=== PATIENT | female | born 1975 | race Caucasian/White ===

== ENCOUNTER → 2017-04-05 | Outpatient (CLI) | payer MEDICAID ==
[2016-12-09 07:42] VITALS: BP 140/88
[2017-04-05 11:32] LABS: BASOPHILS % (AUTO) 0.6 % (0.2-1.0); EOSINOPHILS # (AUTO) 0.2 x10^3/uL (0.0-0.2); EOSINOPHILS % (AUTO) 3.7 % (0.9-2.9); HEMATOCRIT 35.5 % (36.0-47.0); HEMOGLOBIN 12.3 g/dL (12.0-16.0); LYMPHOCYTES # (AUTO) 1.9 X10^3/uL (1.3-2.9); LYMPHOCYTES % (AUTO) 34.6 % (21.0-51.0); MEAN CORPUSCULAR HEMOGLOBIN 30.7 pg (27.0-34.0); MEAN CORPUSCULAR HGB CONC 34.5 g/dL (33.0-35.0); MEAN CORPUSCULAR VOLUME 88.7 fL (80.0-100.0); MEAN PLATELET VOLUME 10.3 fL (7.4-11.0); MONOCYTES # (AUTO) 0.4 x10^3/uL (0.3-0.8); MONOCYTES % (AUTO) 6.9 % (0.0-13.0); NEUTROPHILS # (AUTO) 2.9 x10^3/uL (2.2-4.8); NEUTROPHILS % (AUTO) 54.2 % (42.0-75.0); PLATELET COUNT 154 X10^3/uL (150.0-450.0); RED CELL DISTRIBUTION WIDTH 13.3 % (11.6-16.5); WHITE BLOOD COUNT 5.4 X10^3/uL (3.6-10.0)
[2017-04-05 11:41] LABS: HEMOGLOBIN A1C 5.4 % (4.5-6.2)
[2017-04-05 11:45] LABS: ALBUMIN 3.1 g/dL (3.4-5.0); BLOOD UREA NITROGEN 13 mg/dL (7-18); CALCIUM 8.7 mg/dL (8.5-10.1); CARBON DIOXIDE 26.1 mmol/L (21-32); CHLORIDE 107 mmol/L (98-107); CHOL/HDL RATIO 3.5 (0.0-5.0); CHOLESTEROL 121 mg/dL (0-200); COR CA(FOR HYPOALB) 9.4 mg/dL (8.5-10.1); CREATININE 0.73 mg/dL (0.55-1.02); GLUCOSE 93 mg/dL (65-99); HDL CHOLESTEROL 35 mg/dL (40-60); PHOSPHORUS 3.3 mg/dL (2.6-4.7); SODIUM 142 mmol/L (136-145); TRIGLYCERIDES 188 mg/dL (0-150); URIC ACID 4.3 mg/dL (2.6-6.0); eGFR BLACK RACES > 60 (>60); eGFR NON BLACK RACES > 60 (>60)
--- NOTE | 2017-04-05 12:22 | RAD ---
HISTORY: Left foot pain, nontraumatic Study: Left foot three views Comparison: None Findings: Postsurgical changes are present in the distal 1st metatarsal with 2 screws present. The patient is likely status post bunionectomy. No acute bone or acute joint abnormality is identified. No fracture , lytic, or blastic lesion is identified. No erosive arthritis or soft tissue abnormality is identif ied. IMPRESSION: No acute findings Postsurgical changes as above Reported By:
== END ==
LOC: LAB 11:05
PROVIDERS: ATTEND Internal Medicine
DX: I10 Essential (primary) hypertension (principal); N39.9 Disorder of urinary system, unspecified; M79.672 Pain in left foot
CPT/HCPCS: 36415; 73630; 80061; 80069; 83036; 84550; 85025; 87086

== ENCOUNTER → 2017-05-24 | Outpatient (CLI) | payer MEDICAID ==
[2016-12-09 07:42] VITALS: BP 140/88
[2017-05-24 11:38] LABS: BASOPHILS % (AUTO) 0.6 % (0.2-1.0); EOSINOPHILS # (AUTO) 0.2 x10^3/uL (0.0-0.2); EOSINOPHILS % (AUTO) 2.9 % (0.9-2.9); HEMATOCRIT 36.6 % (36.0-47.0); HEMOGLOBIN 12.9 g/dL (12.0-16.0); LYMPHOCYTES # (AUTO) 1.9 X10^3/uL (1.3-2.9); LYMPHOCYTES % (AUTO) 35.1 % (21.0-51.0); MEAN CORPUSCULAR HEMOGLOBIN 31.1 pg (27.0-34.0); MEAN CORPUSCULAR HGB CONC 35.1 g/dL (33.0-35.0); MEAN CORPUSCULAR VOLUME 88.5 fL (80.0-100.0); MEAN PLATELET VOLUME 9.9 fL (7.4-11.0); MONOCYTES # (AUTO) 0.4 x10^3/uL (0.3-0.8); MONOCYTES % (AUTO) 8.1 % (0.0-13.0); NEUTROPHILS % (AUTO) 53.3 % (42.0-75.0); PLATELET COUNT 168 X10^3/uL (150.0-450.0); RED BLOOD COUNT 4.14 X10^6/uL (3.5-5.4); RED CELL DISTRIBUTION WIDTH 13.8 % (11.6-16.5); WHITE BLOOD COUNT 5.5 X10^3/uL (3.6-10.0)
[2017-05-24 13:07] LABS: ALBUMIN 3.4 g/dL (3.4-5.0); BLOOD UREA NITROGEN 18 mg/dL (7-18); CALCIUM 8.9 mg/dL (8.5-10.1); CARBON DIOXIDE 24.4 mmol/L (21-32); CHLORIDE 105 mmol/L (98-107); CHOL/HDL RATIO 4.8 (0.0-5.0); CHOLESTEROL 158 mg/dL (0-200); COR NA(FOR HYPERGLY) 140 mmol/L (136-145); CREATININE 0.72 mg/dL (0.55-1.02); GLUCOSE 114 mg/dL (65-99); HDL CHOLESTEROL 33 mg/dL (40-60); PHOSPHORUS 3.4 mg/dL (2.6-4.7); SODIUM 140 mmol/L (136-145); TRIGLYCERIDES 215 mg/dL (0-150); URIC ACID 4.7 mg/dL (2.6-6.0); eGFR BLACK RACES > 60 (>60); eGFR NON BLACK RACES > 60 (>60)
== END ==
LOC: LAB 10:58
PROVIDERS: ATTEND Internal Medicine
DX: I12.9 Hypertensive chronic kidney disease with stage 1 through stage 4 chronic kidney disease, or unspecified chronic kidney disease (principal)
CPT/HCPCS: 36415; 80061; 80069; 84550; 85025

== ENCOUNTER → 2017-05-29 | Outpatient (CLI) | payer MEDICAID ==
[2016-12-09 07:42] VITALS: BP 140/88
--- NOTE | 2017-05-29 09:51 | RAD ---
Examination: X-rays of the left foot. Clinical history: Calcaneal spur, plantar fascial fibromatosis. Technique: Three views of the left foot were obtained. Comparison: 04/05/2017. Findings: The 2 metallic screws are seen associated with the distal portion of the 1st metatarsal bone, unchan ged from the prior examination, probably related to a prior bunionectomy. No acute fracture, dislocation, or destructive bony lesion is noted. Small bony spurs are noted at the plantar and posterior aspects of the calcaneus, consistent with en thesopathy. No soft tissue abnormality is noted. Impression: 1. Stable postsurgical changes, as described above. 2. Small bony spurs are noted at the plantar and posterior aspects of the calcaneus, consistent with enthesopathy. Reported By:
--- NOTE | 2017-05-29 09:53 | RAD ---
Examination: X-rays of the right foot. Clinical history: Calcaneal spur, plantar fascial fibromatosis. Technique: Three views of the right foot were obtained. Comparison: None available. Findings: No acute fracture, dislocation, or destructive bony lesion is noted. Moderate-sized bony spurs are noted at the plantar and posterior aspects of the calcaneus, consisten t with enthesopathy. No soft tissue abnormality is noted. Impression: 1. No acute fracture or dislocation. 2. Moderate-sized bony spurs are noted at the plantar and posterior aspects of the calcaneus, consis tent with enthesopathy. Reported By:
--- NOTE | 2017-05-29 13:19 | US ---
STUDY: RENAL ULTRASOUND History: Recurring UTI. Comparison: None. Technique: Multiple matta scale and color flow Doppler images of the kidneys were obtained. The jessica on of the urinary bladder was evaluated. Findings: The right kidney is normal in size and echotexture measuring 8.7 x 5.2 x 6.7 cm. Right renal cortex measures 1.5 cm. There is no evidence of mass, nephrolithiasis, or hydronephrosis. The left kidney is normal in size and echotexture measuring 10.6 x 6.0 x 7.1 cm. Left renal cortex m easures 1.7 cm. There is no evidence of mass, nephrolithiasis, or hydronephrosis. Color flow imaging shows normal arterial and venous blood flow to and from both kidneys. The urinary bladder is grossly unremarkable. IMPRESSION: 1. Unremarkable ultrasound evaluation of the kidneys. Reported By:
== END ==
LOC: RAD 08:42
PROVIDERS: ATTEND Urology
DX: N30.20 Other chronic cystitis without hematuria (principal); M77.31 Calcaneal spur, right foot; M77.32 Calcaneal spur, left foot; M72.2 Plantar fascial fibromatosis
CPT/HCPCS: 73630; 76770

== ENCOUNTER 2017-06-20 21:21 | Emergency (ER) | payer MEDICAID ==
[2017-06-20 21:26] VITALS: BP 145/100; BMI 37.4
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
[2017-06-20 22:04] LABS: BASOPHILS % (AUTO) 0.3 % (0.2-1.0); EOSINOPHILS # (AUTO) 0.2 x10^3/uL (0.0-0.2); EOSINOPHILS % (AUTO) 2.6 % (0.9-2.9); HEMATOCRIT 35.2 % (36.0-47.0); HEMOGLOBIN 12.5 g/dL (12.0-16.0); LYMPHOCYTES # (AUTO) 2.1 X10^3/uL (1.3-2.9); LYMPHOCYTES % (AUTO) 30.9 % (21.0-51.0); MEAN CORPUSCULAR HEMOGLOBIN 31.5 pg (27.0-34.0); MEAN CORPUSCULAR HGB CONC 35.5 g/dL (33.0-35.0); MEAN CORPUSCULAR VOLUME 88.7 fL (80.0-100.0); MONOCYTES # (AUTO) 0.5 x10^3/uL (0.3-0.8); MONOCYTES % (AUTO) 7.2 % (0.0-13.0); NEUTROPHILS # (AUTO) 4.1 x10^3/uL (2.2-4.8); PLATELET COUNT 181 X10^3/uL (150.0-450.0); RED BLOOD COUNT 3.97 X10^6/uL (3.5-5.4); RED CELL DISTRIBUTION WIDTH 14.2 % (11.6-16.5); WHITE BLOOD COUNT 6.9 X10^3/uL (3.6-10.0)
[2017-06-20 22:17] LABS: BLOOD UREA NITROGEN 10 mg/dL (7-18); CALCIUM 8.8 mg/dL (8.5-10.1); CARBON DIOXIDE 26.3 mmol/L (21-32); CHLORIDE 107 mmol/L (98-107); CREATININE 0.66 mg/dL (0.55-1.02); GLUCOSE 103 mg/dL (65-99); SODIUM 141 mmol/L (136-145); eGFR BLACK RACES > 60 (>60); eGFR NON BLACK RACES > 60 (>60)
== END 2017-06-20 23:30 | disposition home or self-care (01) ==
LOC: ER 21:29
DX: Z00.6 Encounter for examination for normal comparison and control in clinical research program (principal)
CPT/HCPCS: 36415; 80048; 85025; 99282; 99283

== ENCOUNTER → 2017-10-28 | Outpatient (CLI) | payer MEDICAID ==
--- NOTE | 2017-10-28 14:41 | RAD ---
Examination: Chest, PA and lateral views History: Cough, SOB Comparison reference 06/05/2016 Findings: Continued normal heart size with clear lungs and pleural spaces. Impression: No change; no acute disease. Reported By:
== END ==
LOC: RAD 13:49
PROVIDERS: ATTEND Internal Medicine
DX: R05 Cough (principal); R06.02 Shortness of breath; Z86.79 Personal history of other diseases of the circulatory system
CPT/HCPCS: 71046

== ENCOUNTER 2017-10-30 11:48 | Observation (INO) | payer MEDICAID ==
[2017-10-30] MEDS ORDERED: PHENERGAN INJ 25 MG IV PRN ×2 (13:33→15:29)
[2017-10-30] MEDS ORDERED: PEPCID 20 MG IV PREMIX* 20 MG/50 ML BAG IV SCH (14:00)
[2017-10-30] MEDS ORDERED: NS 1/2 1000 ML IV 1,000 ML IV ONE (15:56)
[2017-10-30 15:57] LABS: BASOPHILS % (AUTO) 0.5 % (0.2-1.0); EOSINOPHILS # (AUTO) 0.3 x10^3/uL (0.0-0.2); EOSINOPHILS % (AUTO) 3.8 % (0.9-2.9); HEMATOCRIT 38.3 % (36.0-47.0); HEMOGLOBIN 13.1 g/dL (12.0-16.0); LYMPHOCYTES # (AUTO) 2.1 X10^3/uL (1.3-2.9); LYMPHOCYTES % (AUTO) 30.7 % (21.0-51.0); MEAN CORPUSCULAR HEMOGLOBIN 30.9 pg (27.0-34.0); MEAN CORPUSCULAR HGB CONC 34.3 g/dL (33.0-35.0); MEAN CORPUSCULAR VOLUME 90.2 fL (80.0-100.0); MEAN PLATELET VOLUME 9.7 fL (7.4-11.0); MONOCYTES # (AUTO) 0.4 x10^3/uL (0.3-0.8); MONOCYTES % (AUTO) 6.6 % (0.0-13.0); NEUTROPHILS # (AUTO) 3.9 x10^3/uL (2.2-4.8); NEUTROPHILS % (AUTO) 58.4 % (42.0-75.0); PLATELET COUNT 194 X10^3/uL (150.0-450.0); RED BLOOD COUNT 4.25 X10^6/uL (3.5-5.4); RED CELL DISTRIBUTION WIDTH 13.9 % (11.6-16.5); WHITE BLOOD COUNT 6.7 X10^3/uL (3.6-10.0)
[2017-10-30] MEDS: NS 1/2 1000 ML IV 1,000 ML IV SCH (16:04)
[2017-10-30] MEDS: ROCEPHIN VIAL 1 GM 1 GM in NS 100 ML IV + SPIKE MINIBAG* 100 ML IV SCH (16:04)
--- NOTE | 2017-10-30 16:08 | RAD ---
Examination: Abdomen with PA chest History: Pain, fever Findings: PA upright chest demonstrates normal heart size with clear lungs and pleural spaces. In the abdomen, supine and erect views indicate a normal gas pattern without evidence for obstruction or il eus. No ascites, pneumatosis or free air demonstrated. There are surgical clips in the right upper qu adrant and a single clip is noted in the left pelvis. No visceral outlines deformities identified. Impression: Postsurgical findings in the abdomen. No acute chest or abdominal process demonstrated. Reported By:
[2017-10-30 16:20] LABS: ALANINE AMINOTRANSFERASE 69 Units/L (12-78); ALBUMIN 3.6 g/dL (3.4-5.0); ALKALINE PHOSPHATASE 92 Units/L (46-116); ASPARTATE AMINO TRANSFERASE 24 Units/L (15-37); BLOOD UREA NITROGEN 13 mg/dL (7-18); CALCIUM 9.2 mg/dL (8.5-10.1); CARBON DIOXIDE 27.9 mmol/L (21-32); CHLORIDE 105 mmol/L (98-107); CREATININE 0.64 mg/dL (0.55-1.02); SODIUM 141 mmol/L (136-145); eGFR BLACK RACES > 60 (>60); eGFR NON BLACK RACES > 60 (>60)
[2017-10-30 17:42] VITALS: BMI 37.4
[2017-10-30] MEDS: PEPCID 20 MG IV PREMIX* 20 MG/50 ML BAG IV SCH (20:12)
[2017-10-30 23:17] LABS: BILIRUBIN,URINE NEGATIVE (NEGATIVE); BLOOD/HEMOGLOBIN,URINE 5+ (NEGATIVE); GLUCOSE, URINE NEGATIVE (NEGATIVE); KETONES,URINE NEGATIVE (NEGATIVE); LEUKOCYTE ESTERASE ,URINE 2+ (NEGATIVE); NITRITES,URINE NEGATIVE (NEGATIVE); PROTEIN,URINE 1+ (NEGATIVE); UROBILINOGEN,URINE NORMAL (NORMAL)
[2017-10-30 23:34] LABS: AMORPHOUS SEDIMENT,UR 1+ /HPF (NEGATIVE); APPEARANCE,URINE HAZY (CLEAR); BACTERIA,URINE TRACE /HPF (NEGATIVE); COLOR,URINE YELLOW (YELLOW); MUCUS,URINE MODERATE /HPF (NEGATIVE); SQUAMOUS EPITHELIAL CELL,UR MANY /HPF (NEGATIVE)
[2017-10-31] MEDS ORDERED: NS 1/2 1000 ML IV 1,000 ML IV ONE ×2 (03:54→17:39)
[2017-10-31] MEDS: NS 1/2 1000 ML IV 1,000 ML IV SCH ×2 (04:10→17:48)
[2017-10-31] MEDS ORDERED: NS 100 ML IV 100 ML IV ONE (09:15)
--- NOTE | 2017-10-31 10:37 | CT ---
CT ABDOMEN AND PELVIS WITH ORAL AND IV CONTRAST CLINICAL HISTORY: 42-year-old female with abdominal pain and urinary retention COMPARISON: None. TECHNIQUE: Multiple contiguous axial were obtained following the administration of contrast. Images were reformatted in the coronal and sagittal planes. FINDINGS: The lung bases are clear without pulmonary nodules, masses, or pleural fluid collections. The inferi or imaged heart is normal in size and there is no pericardial effusion. Hepatomegaly without hepatic steatosis, no focal mass lesion or biliary ductal dilatation. Status pos t cholecystectomy. Pancreas and spleen are unremarkable. The adrenal glands are normal bilaterally. 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 The kidneys perfuse in a normal fashion and the ureters run in an unobstructed course to a well distended urinary bladder . The uterus is anteverted and normal in size. Left ovary, perineum and vagina are unremarkable. Right simple appearing adnexal cyst measuring 6.6 x 6.1 x 6.1 cm (AP, transverse and craniocaudad). Additi onal simple appearing cystic structure within the right lower quadrant, retrocecal, measuring 5.5 x 5 .6 x 5.6 cm. The bowel is without obstruction or inflammation and there is no free fluid or free air within the pe ritoneal cavity. Diverticulosis without CT evidence of diverticulitis. Appendix is normal. There are no pathologically enlarged lymph nodes in the abdomen or pelvis. The arteriovascular structures are within normal limits. Soft tissues are normal. The osseous structures are intact without fracture or malalignment. IMPRESSION: 1. Simple appearing cystic lesion within the right lower quadrant measuring up to 5.6 cm is most cons istent with peritoneal inclusion cysts. Less likely differential considerations include but are not l imited to lymphocele, parovarian cyst and ovarian neoplastic process. Further evaluation with ultraso und/MR should be considered. 2. Large, simple appearing, right adnexal cysts measuring up to 6.6 cm, most likely benign. Yearly fo llow-up with ultrasound is recommended. Follow-up with [employer] [employer]. 3. Hepatomegaly. 4. Normal appendix. 5. No acute intra-abdominal or intrapelvic process. Reported By:
[2017-10-31] MEDS: ROCEPHIN VIAL 1 GM 1 GM in NS 100 ML IV + SPIKE MINIBAG* 100 ML IV SCH (10:45)
[2017-10-31] MEDS: PEPCID 20 MG IV PREMIX* 20 MG/50 ML BAG IV SCH ×2 (10:45→20:55)
[2017-10-31] MEDS ORDERED: NORCO 10/325 TAB PO PRN (19:20)
[2017-10-31] MEDS ORDERED: SOMA TAB 350 MG PO PRN (19:20)
--- NOTE | 2017-10-31 19:20 | DR.H&P ---
H&P - History & Physical for Day of: H&P Date: 10/30/17 - Chief Complaint Chief Complaint: ABDOMINAL PAIN, URINARY RETENTION, FEVER - Allergies Allergies/Adverse Reactions: Allergies Allergy/AdvReac Type Severity Reaction Status Date / Time codeine Allergy Verified 10/30/17 11:55 dexamethasone Allergy Verified 10/30/17 11:55 haloperidol Allergy Verified 10/30/17 11:55 Penicillins Allergy Verified 10/30/17 11:55 prochlorperazine Allergy Verified 10/30/17 11:55 promethazine Allergy Verified 10/30/17 11:55 - History of Present Illness History of Present Illness: 42WF DIRECT ADMIT FROM DR ADAMS OFFICE WITH CO LOWER ABDOMINAL PAIN, FEVER, RECENT UTI AND CO VERY MINIMAL URINE OUTPUT. PT ADMITTED FOR FURTHER EVALUATION OF ABDOMINAL PAIN. PLAN TO OTBAIN UA AND CULTURES, IV ATBX THERAPY - Past Medical History Past Medical History: Anxiety, Asthma, COPD, Depression, Diabetes, Migraines, Hypertension - Past Surgical History Surgical History: Cholecystectomy, [employer] Surgery, Ortho Surgery - Family History Family Medical History: Hypertension - Social History Does patient currently use any type of tobacco product: No Have you used tobacco products in the last 12 months: No Type of Tobacco Use: None Alcohol Use: None Drug Use: None - Medications Home Medications: Budesonide-Formoterol [SYMBICORT INH 80/4.5 mcg] 2 puff INH Q12H 10/30/17 [ History Confirmed 10/30/17] Carisoprodol [Soma Tab 350 mg] 350 mg PO BID PRN 10/30/17 [History Confirmed 08/07] Dicyclomine HCl [Bentyl Cap 10 mg] 10 mg PO TID 10/30/17 [History Confirmed 08/07] Diltiazem HCl [Diltiazem ER] 90 mg PO DAILY 10/30/17 [History Confirmed 10/30/17 ] Gabapentin [Neurontin Cap 300 mg] 300 mg PO TID 10/30/17 [History Confirmed 08/07] Hydrocodone-Acet 10/325 mg [[place] 10/325 Tab] 1 tab PO Q8H PRN 10/30/17 [ History Confirmed 10/30/17] Levocetirizine Dihydrochloride [Xyzal Allergy 24Hr] 5 mg PO HS 10/30/17 [ History Confirmed 10/30/17] Meloxicam [Mobic Tab 15 mg] 15 mg PO DAILY 10/30/17 [History Confirmed 10/30/17] Omeprazole [PRILOSEC 20 MG *] 20 mg PO DAILY 10/30/17 [History Confirmed ] Quetiapine Fumarate [Quetiapine Fumarate ER] 50 mg PO HS 10/30/17 [History Confirmed 10/30/17] - Review of Systems Constitutional: Fever, Chills Eyes: No Symptoms Reported ENT: No Symptoms Reported Respiratory: No Symptoms Reported Cardiovascular: No Symptoms Reported Gastrointestinal: Nausea Genitourinary: Retention Musculoskeletal: Back Pain, Neck Pain Skin: No Symptoms Reported Neurological: Weakness - Physical Exam Vital Signs: Temperature 98.4 F Pulse Rate [Right Brachial] 83 Respiratory Rate 18 Blood Pressure [Right Arm] 150/78 Blood Pressure 145/100 O2 Sat by Pulse Oximetry 97 Oriented: Normal Eyes: Normal Ear: Normal Nose: Normal Throat: Normal Respiratory: RLL Diminished, LLL Diminished Cardiovascular: Normal, Irregular Auscultation: Bowel Sounds: Normal Tenderness: LLQ, Suprapubic Skin: Normal Musculoskeletal: Back:Lumbar Psychiatric: Anxiety Affect: Anxious Speech Pattern: Clear, Appropriate - Assessment/Plan (1) Abdominal pain Status: Acute Plan: ADMISSION LABS, IV ATBX. URINE CULTURE, ABD SERIES ON ADMISSION. PAIN AND NAUSEA CONTROL, RESUME HOME MEDS (2) Urinary tract infectious disease Status: Active (3) Hypertension Status: Acute
[2017-10-31] MEDS ORDERED: PATIENT'S HOME MEDICATION (Budesonide-Formoterol 2 PUFF) INH SCH (19:30)
[2017-10-31] MEDS: PULMICORT NEB TX 0.5 MG NEB SCH (20:40)
[2017-10-31] MEDS ORDERED: ALPRAZOLAM 0.5 MG PO SCH (21:00)
[2017-10-31] MEDS ORDERED: PATIENT'S HOME MEDICATION (Quetiapine Fumarate [Quetiapine Fumarate Er] 50 MG) PO SCH (21:00)
[2017-10-31] MEDS ORDERED: PULMICORT NEB TX 0.5 MG NEB SCH (21:00)
[2017-10-31] MEDS ORDERED: SEROquel TAB 100 MG PO SCH (21:00)
[2017-10-31] MEDS ORDERED: SYMBICORT INH 80/4.5 mcg IN SCH (21:00)
[2017-10-31] MEDS ORDERED: NEURONTIN CAP 300 MG PO SCH (22:00)
[2017-10-31] MEDS: XANAX PO SCH (22:11)
[2017-11-01 06:09] LABS: BASOPHILS % (AUTO) 0.4 % (0.2-1.0); EOSINOPHILS # (AUTO) 0.2 x10^3/uL (0.0-0.2); HEMOGLOBIN 11.9 g/dL (12.0-16.0); LYMPHOCYTES # (AUTO) 1.7 X10^3/uL (1.3-2.9); LYMPHOCYTES % (AUTO) 33.6 % (21.0-51.0); MEAN CORPUSCULAR HEMOGLOBIN 31.6 pg (27.0-34.0); MEAN CORPUSCULAR HGB CONC 35.1 g/dL (33.0-35.0); MEAN CORPUSCULAR VOLUME 90.2 fL (80.0-100.0); MEAN PLATELET VOLUME 9.7 fL (7.4-11.0); MONOCYTES # (AUTO) 0.4 x10^3/uL (0.3-0.8); MONOCYTES % (AUTO) 7.3 % (0.0-13.0); NEUTROPHILS # (AUTO) 2.8 x10^3/uL (2.2-4.8); NEUTROPHILS % (AUTO) 54.7 % (42.0-75.0); PLATELET COUNT 163 X10^3/uL (150.0-450.0); RED BLOOD COUNT 3.77 X10^6/uL (3.5-5.4); RED CELL DISTRIBUTION WIDTH 13.9 % (11.6-16.5); WHITE BLOOD COUNT 5.1 X10^3/uL (3.6-10.0)
[2017-11-01] MEDS ORDERED: NEURONTIN CAP 300 MG PO SCH (06:11)
[2017-11-01] MEDS: NEURONTIN CAP 300 MG PO SCH ×2 (06:18→08:57)
[2017-11-01 06:48] LABS: ALANINE AMINOTRANSFERASE 53 Units/L (12-78); ALBUMIN 2.9 g/dL (3.4-5.0); ALKALINE PHOSPHATASE 86 Units/L (46-116); ASPARTATE AMINO TRANSFERASE 15 Units/L (15-37); BLOOD UREA NITROGEN 12 mg/dL (7-18); CALCIUM 8.8 mg/dL (8.5-10.1); CARBON DIOXIDE 23.5 mmol/L (21-32); CHLORIDE 109 mmol/L (98-107); COR CA(FOR HYPOALB) 9.7 mg/dL (8.5-10.1); COR NA(FOR HYPERGLY) 142 mmol/L (136-145); CREATININE 0.67 mg/dL (0.55-1.02); SODIUM 142 mmol/L (136-145); TOTAL PROTEIN 6.2 g/dL (6.4-8.2); eGFR BLACK RACES > 60 (>60); eGFR NON BLACK RACES > 60 (>60)
[2017-11-01] MEDS: PEPCID 20 MG IV PREMIX* 20 MG/50 ML BAG IV SCH (08:56)
[2017-11-01] MEDS: ROCEPHIN VIAL 1 GM 1 GM in NS 100 ML IV + SPIKE MINIBAG* 100 ML IV SCH (08:56)
[2017-11-01] MEDS: XANAX PO SCH (08:58)
[2017-11-01] MEDS ORDERED: CARDIZEM SR 90 MG PO SCH (09:00)
[2017-11-01] MEDS ORDERED: MOBIC TAB 15 MG PO SCH (09:00)
[2017-11-01] MEDS ORDERED: PriLOSEC PO SCH (09:00)
[2017-11-01] MEDS ORDERED: DILTIAZEM HCL 90 MG PO SCH (09:00)
[2017-11-01] MEDS ORDERED: SINGULAIR TAB 10 MG PO SCH (09:00)
[2017-11-01] MEDS: PULMICORT NEB TX 0.5 MG NEB SCH (10:12)
[2017-11-01 13:18] VITALS: BP 140/70
--- NOTE | 2017-11-01 14:12 | MRI ---
MRI abdomen without contrast, MRCP Indication: Further evaluate cystic lesion on CT. Urinary retention, abdominal pain Comparison: CT abdomen and pelvis 10/31/2017 Technique: Multiplanar multi sequence MR images of the abdomen were obtained without contrast. MRCP w as performed. Findings: The liver is diffusely steatotic and enlarged, but without focal lesion. The gallbladder is absent. The bile ducts are within normal limits for postcholecystectomy state. Small hiatal hernia o f the stomach is similar to prior. The remainder of the stomach, spleen, duodenum, pancreas, adrenals , and kidneys are unremarkable. Again seen is a simple cystic mass in the right lower quadrant measur ing 5.9 x 5.7 x 5.6 cm (AP by transverse by craniocaudal). This lesion appears to be separable from t he appendix, which appears normal. A simple 6.6 x 6.2 cm right adnexal cyst is also unchanged. The ut erus and ovaries are noted. The urinary bladder and rectum are unremarkable as visualized. Impression: 1. Stable 5.9 cm simple cystic mass within the right lower quadrant, with differential considerations as before. Appendiceal mucocele is unlikely, as the appendix is separable from the lesion on the cur rent study, while the appendix abutted the lesion on the previous CT. 2. Simple 6.6 cm right adnexal cyst. 3. Hepatic steatosis, hepatomegaly 4. Small hiatal hernia Reported By:
== END 2017-11-01 14:55 | disposition home or self-care (01) ==
LOC: OBS 11:48
PROVIDERS: ADMIT Internal Medicine; ATTEND Internal Medicine
DX: R10.84 Generalized abdominal pain (principal); N39.0 Urinary tract infection, site not specified; J44.1 Chronic obstructive pulmonary disease with (acute) exacerbation; E11.65 Type 2 diabetes mellitus with hyperglycemia; I10 Essential (primary) hypertension; R19.09 Other intra-abdominal and pelvic swelling, mass and lump; E27.8 Other specified disorders of adrenal gland; R16.0 Hepatomegaly, not elsewhere classified; I25.10 Atherosclerotic heart disease of native coronary artery without angina pectoris; I50.9 Heart failure, unspecified
CPT/HCPCS: 36415; 74022; 74177; 74181; 80053; 81001; 85025; 94640; A4222; S0028; G0378; J0696; J7626

== ENCOUNTER 2018-01-15 18:10 | Emergency (ER) | payer MEDICAID ==
[2018-01-15 18:23] VITALS: BMI 38.2
--- NOTE | 2018-01-15 18:32 | DR.GENAD ---
HPI - PCP Primary Care Physician: FERMIN CULVER, BAG SEWER - HPI Comment HPI Comment: SAW PCP AND WAS TREATED FOR EAR INFECTION AND KNEE PAIN WITH 3 INJECTION. WENT HOME AND HER HEART STARTED POUNDING. NURSE TOLD HER TO CALL EMS AND COME TO ED. - Complaint/Symptoms Chief Complaint Doctors Comments: HEART POUNDING, RAPID AND CHEST HURTING FOR Chief Complaint:: EMS OUT TO > HR, PT C/O THAT SHE WENT TO HER PRIMARY CARE AND SHE HAS FELT FUNNY AND HER HR WAS> , PT HAS HX AND PT HAS HX HIGH HR AND SHE TOOK HER BP MEDS THIS AM ,, BR Self Treatment fo Chief Complaint: PT IS POOR HISTORIAN WHEN SHE WAS ASKED HX SHE STATES " ATIF".. CAN'T REMEMBER .. BR - Nurses notes reviewed Nurses Notes Review: Yes - Source History Provided: Patient - Mode of Arrival Mode of Arrival: EMS - Timing Onset of Chief Complaint: 01/15/18 Came on: Suddenly - Duration Duration: Constant Duration: Hours - Severity Severity: Moderate PMH - PMH Past Medical History: Yes Past Medical History: Anxiety, Asthma, COPD, Depression, Diabetes, Migraines, Hypertension Past Medical History Comment: > HR, Past Surgical History: Yes Surgical History: Cholecystectomy, CHEMISTRY QUALITY CONTROL ANALYST Surgery, Ortho Surgery - Family History History of Family Medical Conditions: Yes Family Medical History: Hypertension - Social History Does patient currently use any type of tobacco product: No Have you used tobacco products in the last 12 months: No Type of Tobacco Use: None Does any household member use tobacco: No Alcohol Use: None Do you use any recreational Drugs:: No Lives With: Family Lives Where: Home - infectious screening In the last 2 months have you had wt loss of >10#?: NO Have you had fever, night sweats or hemotysis?: No Have you traveled outside the country in the last 6 months?: No Isolation: Standard ROS - Review of Systems Constitutional: Weakness, Fatigue. negative: Chills, Fever, Loss of Appetite Eyes: No Symptoms Reported. negative: Eye Pain, Discharge ENTM: negative: Ear Pain, Nose Discharge, Nose Congestion, Throat Pain Respiratoy: Short of Breath. negative: Productive Cough, Wheezing, Hemoptysis Cardiovascular: Chest Pain, Palpitations. negative: Syncope Gastrointestinal/Abdominal: negative: Abdominal Pain, Diarrhea, Nausea, Vomiting Genitourinary: negative: Dysuria, Frequency, Hematuria Neurological: Headache, Weakness, Dizziness Musculoskeletal: No Symptoms Reported Integumentary: No Symptoms Reported Hematologic/Lymphatic: No Symptoms Reported Endocrine: No Symptoms Reported All Other Systems: Reviewed and Negative PE - Vital Signs Vitals: Temperature 97.6 F Pulse Rate [Apical] 104 Pulse Rate 138 Respiratory Rate 20 Blood Pressure [Left Arm] 138/88 Blood Pressure [Right Arm] 132/69 Blood Pressure 182/106 O2 Sat by Pulse Oximetry 96 - General Limitations: No Limitations General Appearance: Alert - Head Head Exam: Normal Inspection - Eyes Eye exam: Normal Appearance - ENT ENT Exam: Normal External Ear Exam External Ear Exam: Normal External Inspection TM/Canal Exam: Bilateral Normal Nose Exam: Normal Nose Exam Mouth Exam: Normal Inspection Throat Exam: Tonsillar Erythema - Neck Neck Exam: Trachea Midline - Chest Chest Inspection: Symmetric Chest Wall Rise - Respiratory Respiratory Exam: Normal Lung Sounds Bilat Respiratory Exam: Bilateral Clear to Auscultation - Cardiovascular Cardiovascular Exam: Tachycardia - Abdominal Exam Abdominal Exam: Normal Bowel Sounds, Soft. negative: Tenderness - Extremities Extremities Exam: Normal Inspection - Back Back Exam: Normal Inspection - Neurologic Neurological Exam: Alert, Oriented X3 - Psychiatric Psychiatric Exam: Normal Affect, Normal Mood - Skin Skin Exam: Normal Color MDM - Additional Information Additional Information Obtained From: Family - Differential Diagnosis Differential Diagnosis: TACHYCARDIA, CHEST PAIN, HEADACHE Course - Treatment Treatment: SEE ORDERS. HR DECREASING. BP SPONTANOUSLY IMPROVE. HEADACHE IMPROVE WITH IV TORADOL. PATIENT FEELING BETTER. - Reevaluation 1st: Improved - Education/Counseling Education/Counseling: Patient, Family, Education Educated On: Diagnosis, Needs for Follow Up ROR - Labs Reviewed Laboratory Results Reviewed?: Yes Result Diagrams: 01/15/18 18:44 01/15/18 18:44 Laboratory: WBC 10.9 X10^3/uL (3.6-10.0) H 01/15/18 18:44 RBC 4.70 X10^6/uL (3.5-5.4) 01/15/18 18:44 Hgb 14.5 g/dL (12.0-16.0) 01/15/18 18:44 Hct 41.5 % (36.0-47.0) 01/15/18 18:44 MCV 88.3 fL (80.0-100.0) 01/15/18 18:44 MCH 31.0 pg (27.0-34.0) 01/15/18 18:44 MCHC 35.1 g/dL (33.0-35.0) H 01/15/18 18:44 RDW 13.6 % (11.6-16.5) 01/15/18 18:44 Plt Count 194 X10^3/uL (150.0-450.0) 01/15/18 18:44 Plt Count Comment Adequate (ADEQUATE) 01/15/18 18:44 MPV 9.8 fL (7.4-11.0) 01/15/18 18:44 Neut % (Auto) 92.9 % (42.0-75.0) H 01/15/18 18:44 Lymph % (Auto) 5.9 % (21.0-51.0) L 01/15/18 18:44 [place] % (Auto) 0.7 % (0.0-13.0) 01/15/18 18:44 Eos % (Auto) 0.0 % (0.9-2.9) L 01/15/18 18:44 Baso % (Auto) 0.5 % (0.2-1.0) 01/15/18 18:44 Neut # (Auto) 10.1 x10^3/uL (2.2-4.8) H 01/15/18 18:44 Lymph # (Auto) 0.6 X10^3/uL (1.3-2.9) L 01/15/18 18:44 [place] # (Auto) 0.1 x10^3/uL (0.3-0.8) L 01/15/18 18:44 Eos # (Auto) 0.0 x10^3/uL (0.0-0.2) 01/15/18 18:44 Baso # (Auto) 0.1 X10^3/uL (0.0-0.1) 01/15/18 18:44 Absolute Nucleated RBC 0.0 /100WBC 01/15/18 18:44 Total Counted 100 01/15/18 18:44 Neutrophils % (Manual) 88 % (39-76) H 01/15/18 18:44 Band Neutrophils % 4 % (0-10) 01/15/18 18:44 Lymphocytes % (Manual) 7 % (13-43) L 01/15/18 18:44 Monocytes % (Manual) 1 % (4-9) L 01/15/18 18:44 Plt Morphology Comment Normal (NORMAL) 01/15/18 18:44 RBC Morphology Normal (NORMAL) 01/15/18 18:44 Sodium 138 mmol/L (136-145) 01/15/18 18:44 Corrected Sodium 141 mmol/L (136-145) 01/15/18 18:44 Potassium 4.0 mmol/L (3.5-5.1) 01/15/18 18:44 Chloride 104 mmol/L (98-107) 01/15/18 18:44 Carbon Dioxide 22.3 mmol/L (21-32) 01/15/18 18:44 BUN 9 mg/dL (7-18) 01/15/18 18:44 Creatinine 1.05 mg/dL (0.55-1.02) H 01/15/18 18:44 Est GFR (MDRD) Af Amer > 60 (>60) 01/15/18 18:44 Est GFR (MDRD) Non-Af > 60 (>60) 01/15/18 18:44 Glucose 210 mg/dL (65-99) H 01/15/18 18:44 Calcium 9.1 mg/dL (8.5-10.1) 01/15/18 18:44 Corrected Calcium TNP 01/15/18 18:44 Total Bilirubin 0.20 mg/dL (0.2-1.0) 01/15/18 18:44 AST 32 Units/L (15-37) 01/15/18 18:44 ALT 96 Units/L (12-78) H 01/15/18 18:44 Alkaline Phosphatase 109 Units/L (46-116) 01/15/18 18:44 Creatine Kinase 40 Units/L (26-192) 01/15/18 18:44 CK-MB (CK-2) < 1.0 ng/mL (0-4.0) 01/15/18 18:44 CK/CKMB % Calc 2.5 % (<4) 01/15/18 18:44 Troponin I < 0.02 ng/mL (0-1.5) 01/15/18 18:44 Total Protein 7.8 g/dL (6.4-8.2) 01/15/18 18:44 Albumin 3.8 g/dL (3.4-5.0) 01/15/18 18:44 Globulin 4.0 g/dL (2.5-4.5) 01/15/18 18:44 Albumin/Globulin Ratio 1.0 Ratio (1.1-2.1) L 01/15/18 18:44 TSH 3rd Generation 0.851 uIU/mL (0.358-3.74) 01/15/18 18:44 Specimen Type Clean catch urine 01/15/18 18:54 Urine Color Yellow (YELLOW) 01/15/18 18:54 Urine Appearance Slightly hazy (CLEAR) 01/15/18 18:54 Urine pH 8.0 (5.0 - 8.0) 01/15/18 18:54 Ur Specific [place] 1.005 (1.000-1.030) 01/15/18 18:54 Urine Protein Negative (NEGATIVE) 01/15/18 18:54 Urine Glucose (UA) 1+ (NEGATIVE) 01/15/18 18:54 Urine Ketones Negative (NEGATIVE) 01/15/18 18:54 Urine Occult Blood Negative (NEGATIVE) 01/15/18 18:54 Urine Nitrite Negative (NEGATIVE) 01/15/18 18:54 Urine Bilirubin Negative (NEGATIVE) 01/15/18 18:54 Urine Urobilinogen Normal (NORMAL) 01/15/18 18:54 Ur Leukocyte Esterase 1+ (NEGATIVE) 01/15/18 18:54 Urine RBC 0-2 /HPF (NONE SEEN) 01/15/18 18:54 Urine WBC 3-5 /HPF (NONE SEEN) 01/15/18 18:54 Ur Squamous Epith Cells Moderate /HPF (NEGATIVE) 01/15/18 18:54 Urine Bacteria Trace /HPF (NEGATIVE) 01/15/18 18:54 Ur Culture Indicated? No/not indicated 01/15/18 18:54 Urine Opiates Screen Negative (NEG=<300) 01/15/18 18:54 Urine Methadone Screen Negative (NEG=<300) 01/15/18 18:54 Ur Barbiturates Screen Negative (NEG=<200) 01/15/18 18:54 Ur Phencyclidine Scrn Negative (NEG=<25) 01/15/18 18:54 Ur Amphetamines Screen Negative (NEG=<1000) 01/15/18 18:54 U Benzodiazepines Scrn Negative (NEG=<200) 01/15/18 18:54 Urine Cocaine Screen Negative (NEG=<300) 01/15/18 18:54 U Marijuana (THC) Screen Negative (NEG=<50) 01/15/18 18:54 - XRAY XRAY Interpreted by: Radiologist XRAY Findings: REPORT DISCUSS WITH PATIENT. - EKG Rhythm: ST (EKG NOTED) - Diagnosis Discharge Problem: Chest pain, Tachycardia - Discharge Plan Disposition: 01 HOME, SELF-CARE Condition: Stable - Follow ups/Referrals Follow ups/Referrals: FERMIN CULVER [Primary Care Provider] - 01/16/18 - Instructions Instructions: Sinus Tachycardia, Chest Pain Observation Additional Instructions: RETURN TO ED IF WORSE.
--- NOTE | 2018-01-15 18:47 | RAD ---
HISTORY: Chest pain Study: Single view chest Comparison: 10/28/2017 Findings: Single portable view is submitted. Lung volumes are reduced. No infiltrate, effusion or pneumothorax identified. The cardiac and mediastinal contours are within normal limits. The soft tissues are unre markable. IMPRESSION: 1. No acute cardiopulmonary abnormality. Reported By:
[2018-01-15 18:53] LABS: BASOPHILS # (AUTO) 0.1 X10^3/uL (0.0-0.1); BASOPHILS % (AUTO) 0.5 % (0.2-1.0); HEMATOCRIT 41.5 % (36.0-47.0); HEMOGLOBIN 14.5 g/dL (12.0-16.0); LYMPHOCYTES # (AUTO) 0.6 X10^3/uL (1.3-2.9); LYMPHOCYTES % (AUTO) 5.9 % (21.0-51.0); MEAN CORPUSCULAR HGB CONC 35.1 g/dL (33.0-35.0); MEAN CORPUSCULAR VOLUME 88.3 fL (80.0-100.0); MEAN PLATELET VOLUME 9.8 fL (7.4-11.0); MONOCYTES # (AUTO) 0.1 x10^3/uL (0.3-0.8); MONOCYTES % (AUTO) 0.7 % (0.0-13.0); NEUTROPHILS # (AUTO) 10.1 x10^3/uL (2.2-4.8); NEUTROPHILS % (AUTO) 92.9 % (42.0-75.0); PLATELET COUNT 194 X10^3/uL (150.0-450.0); RED CELL DISTRIBUTION WIDTH 13.6 % (11.6-16.5); WHITE BLOOD COUNT 10.9 X10^3/uL (3.6-10.0)
[2018-01-15 19:05] LABS: BAND NEUTROPHILS % 4 % (0-10); PLATELET MORPHOLOGY COMMENT NORMAL (NORMAL)
[2018-01-15 19:09] LABS: BLOOD UREA NITROGEN 9 mg/dL (7-18); CALCIUM 9.1 mg/dL (8.5-10.1); CARBON DIOXIDE 22.3 mmol/L (21-32); CHLORIDE 104 mmol/L (98-107); COR NA(FOR HYPERGLY) 141 mmol/L (136-145); CREATININE 1.05 mg/dL (0.55-1.02); SODIUM 138 mmol/L (136-145); TROPONIN I < 0.02 ng/mL (0-1.5); eGFR BLACK RACES > 60 (>60); eGFR NON BLACK RACES > 60 (>60)
[2018-01-15 19:13] LABS: ALANINE AMINOTRANSFERASE 96 Units/L (12-78); ALBUMIN 3.8 g/dL (3.4-5.0); ALKALINE PHOSPHATASE 109 Units/L (46-116); ASPARTATE AMINO TRANSFERASE 32 Units/L (15-37); CKMB % 2.5 % (<4); CREATINE KINASE 40 Units/L (26-192); CREATINE KINASE MB < 1.0 ng/mL (0-4.0); TOTAL PROTEIN 7.8 g/dL (6.4-8.2); TSH (3RD GENERATION) 0.851 uIU/mL (0.358-3.74)
[2018-01-15] MEDS: CARDIZEM SR 120 MG PO ONE ×2 (19:13→19:16)
[2018-01-15 19:15] LABS: APPEARANCE,URINE SLIGHTLY HAZY (CLEAR); BLOOD/HEMOGLOBIN,URINE NEGATIVE (NEGATIVE); COLOR,URINE YELLOW (YELLOW); GLUCOSE, URINE 1+ (NEGATIVE); KETONES,URINE NEGATIVE (NEGATIVE); PROTEIN,URINE NEGATIVE (NEGATIVE)
[2018-01-15 19:16] LABS: BACTERIA,URINE TRACE /HPF (NEGATIVE); BILIRUBIN,URINE NEGATIVE (NEGATIVE); LEUKOCYTE ESTERASE ,URINE 1+ (NEGATIVE); NITRITES,URINE NEGATIVE (NEGATIVE); RBC,URINE 0-2 /HPF (NONE SEEN); SQUAMOUS EPITHELIAL CELL,UR MODERATE /HPF (NEGATIVE); UROBILINOGEN,URINE NORMAL (NORMAL)
[2018-01-15] MEDS ORDERED: TORADOL 30 MG VIAL IVP ONE (19:35)
[2018-01-15] MEDS ORDERED: XANAX PO ONE (19:35)
[2018-01-15] MEDS ORDERED: TORADOL 30 MG VIAL ONE (19:38)
[2018-01-15] MEDS ORDERED: XANAX ONE (19:38)
[2018-01-15] MEDS ORDERED: VISTARIL PO ONE ×2 (20:55→21:01)
[2018-01-15 21:51] VITALS: BP 138/88
== END 2018-01-15 21:50 | disposition home or self-care (01) ==
LOC: ER 18:11
DX: R00.0 Tachycardia, unspecified (principal); R07.89 Other chest pain; R94.31 Abnormal electrocardiogram [ECG] [EKG]
CPT/HCPCS: 36415; 71045; 73560; 77067; 80053; 80061; 80069; 80307; 81001; 82550; 82553; 84443; 84484; 84550; 85025; 87086; 93005; 93010; 96365; 96374; 99283; 99285; A4222; Q0177; G0434; J1885

== ENCOUNTER → 2018-01-15 | Outpatient (CLI) | payer MEDICAID ==
[2018-01-15 13:07] LABS: BASOPHILS # (AUTO) 0.1 X10^3/uL (0.0-0.1); BASOPHILS % (AUTO) 0.9 % (0.2-1.0); EOSINOPHILS # (AUTO) 0.2 x10^3/uL (0.0-0.2); EOSINOPHILS % (AUTO) 2.5 % (0.9-2.9); HEMATOCRIT 40.8 % (36.0-47.0); HEMOGLOBIN 14.2 g/dL (12.0-16.0); LYMPHOCYTES # (AUTO) 1.8 X10^3/uL (1.3-2.9); LYMPHOCYTES % (AUTO) 21.1 % (21.0-51.0); MEAN CORPUSCULAR HGB CONC 34.9 g/dL (33.0-35.0); MEAN CORPUSCULAR VOLUME 88.8 fL (80.0-100.0); MEAN PLATELET VOLUME 9.9 fL (7.4-11.0); MONOCYTES # (AUTO) 0.3 x10^3/uL (0.3-0.8); MONOCYTES % (AUTO) 3.9 % (0.0-13.0); NEUTROPHILS # (AUTO) 6.1 x10^3/uL (2.2-4.8); NEUTROPHILS % (AUTO) 71.6 % (42.0-75.0); PLATELET COUNT 197 X10^3/uL (150.0-450.0); RED BLOOD COUNT 4.59 X10^6/uL (3.5-5.4); RED CELL DISTRIBUTION WIDTH 13.3 % (11.6-16.5); WHITE BLOOD COUNT 8.5 X10^3/uL (3.6-10.0)
[2018-01-15 13:17] LABS: ALBUMIN 3.8 g/dL (3.4-5.0); BLOOD UREA NITROGEN 9 mg/dL (7-18); CALCIUM 8.8 mg/dL (8.5-10.1); CARBON DIOXIDE 26.4 mmol/L (21-32); CHLORIDE 104 mmol/L (98-107); CHOL/HDL RATIO 6.1 (0.0-5.0); CHOLESTEROL 170 mg/dL (0-200); COR NA(FOR HYPERGLY) 141 mmol/L (136-145); CREATININE 0.87 mg/dL (0.55-1.02); HDL CHOLESTEROL 28 mg/dL (40-60); PHOSPHORUS 3.1 mg/dL (2.6-4.7); SODIUM 139 mmol/L (136-145); TRIGLYCERIDES 246 mg/dL (0-150); URIC ACID 4.1 mg/dL (2.6-6.0); eGFR BLACK RACES > 60 (>60); eGFR NON BLACK RACES > 60 (>60)
[2018-01-15 13:37] LABS: BILIRUBIN,URINE NEGATIVE (NEGATIVE); BLOOD/HEMOGLOBIN,URINE 1+ (NEGATIVE); GLUCOSE, URINE NEGATIVE (NEGATIVE); KETONES,URINE NEGATIVE (NEGATIVE); LEUKOCYTE ESTERASE ,URINE 3+ (NEGATIVE); NITRITES,URINE NEGATIVE (NEGATIVE); PROTEIN,URINE 1+ (NEGATIVE); UROBILINOGEN,URINE NORMAL (NORMAL)
[2018-01-15 13:44] LABS: APPEARANCE,URINE CLOUDY (CLEAR); COLOR,URINE YELLOW (YELLOW)
[2018-01-15 13:49] LABS: SQUAMOUS EPITHELIAL CELL,UR MANY /HPF (NEGATIVE)
[2018-01-15 13:50] LABS: BACTERIA,URINE 2+ /HPF (NEGATIVE)
--- NOTE | 2018-01-15 14:06 | RAD ---
Examination: X-rays of the right knee. Clinical history: Right knee pain. Technique: Three views of the right knee were obtained. Comparison: None available. Findings: No acute fracture, dislocation, or destructive bony lesion is noted. No arthropathy is noted. No soft tissue abnormality is noted. Impression: 1. No acute fracture or dislocation. Reported By:
--- NOTE | 2018-01-16 09:55 | MG ---
HISTORY: SCREENING Comparison: September 03, 2013 FINDINGS: Bilateral CC and MLO projections of the right and left breast were obtained. Heterogeneously dense f ibroglandular tissue is seen to be present without significant interval change. No suspicious sonny ectural distortion, mass or clustered microcalcifications can be observed to suggest malignancy. No skin thickening or nipple retraction is appreciated. No pathological lymphadenopathy can be identif ied. Benign-appearing calcifications are noted within the right and left breast. IMPRESSION: NO RADIOGRAPHIC EVIDENCE OF MALIGNANCY. ACR CATEGORY 2 - benign findings. FOLLOW-UP EXAM 1 YEAR. Diagnostic CAD was utilized and reviewed. * 0 (ZERO) - ASSESSMENT INCOMPLETE; ADDITIONAL IMAGING IS NEEDED. * 1/1 (ONE) - NEGATIVE. * 2/II (TWO) - BENIGN FINDINGS. * 3/III (THREE) - PROBABLY BENIGN FINDING; SHORT INTERVAL FOLLOW-UP SUGGESTED. * 4/IV (FOUR) - SUSPICIOUS ABNORMALITY; BIOPSY SHOULD BE CONSIDERED. * 5/V - HIGHLY SUSPICIOUS OF MALIGNANCY; BIOPSY SHOULD BE PERFORMED. A NEGATIVE X-RAY REPORT SHOULD NOT DELAY BIOPSY IF A DOMINANT OR CLINICALLY SUSPICIOUS MASS IS PRESENT; 4 TO 8 PERCENT OF CANCERS ARE NOT IDENTIFIED BY X-RAY. A NEGA TIVE REPORT MAY REINFORCE THE CLINICAL IMPRESSION. ADENOSIS AND DENSE BREASTS MAY OBSCURE AN UNDERLY ING NEOPLASM. Reported By:
== END ==
LOC: LAB 12:49
PROVIDERS: ATTEND Internal Medicine
DX: I12.9 Hypertensive chronic kidney disease with stage 1 through stage 4 chronic kidney disease, or unspecified chronic kidney disease (principal); N18.1 Chronic kidney disease, stage 1; M25.561 Pain in right knee; Z12.31 Encounter for screening mammogram for malignant neoplasm of breast
CPT/HCPCS: 36415; 73560; 77067; 80061; 80069; 81001; 84550; 85025; 87086

== ENCOUNTER → 2018-02-13 | Outpatient (CLI) | payer MEDICAID ==
[2018-01-15 21:51] VITALS: BP 138/88
--- NOTE | 2018-02-13 09:46 | RAD ---
HISTORY: Right foot and ankle pain Study: Three views of the right foot Comparison: May 29, 2017 Findings: No evidence of acute displaced fracture or dislocation is identified. Degenerative changes of the mid and hindfoot are noted. Moderate spurring is again seen along the Achilles and plantar insertions of the calcaneus similar to prior exam. IMPRESSION: 1. Degenerative changes as noted above. Reported By:
--- NOTE | 2018-02-13 09:46 | RAD ---
HISTORY: Right foot and ankle pain Study: Three views of the right ankle Comparison: None Findings: No evidence of acute displaced fracture or dislocation is identified. The ankle mortise is maintained . Degenerative changes of the mid and hindfoot are noted. Moderate spurring is seen along the [place] s and plantar insertions of the calcaneus. IMPRESSION: 1. Degenerative changes as noted above. Reported By:
--- NOTE | 2018-02-13 10:35 | RAD ---
HISTORY: Left forearm pain. Status post injury a few days prior. Study: Left forearm: Two views Comparison: None Findings: No acute bony or joint abnormalities are identified. A well corticated bony density is present infer ior to the medial epicondyle suggesting remote trauma or epicondylitis. IMPRESSION: 1. Essentially negative radiographs of the left forearm. Reported By:
== END ==
LOC: RAD 08:11
PROVIDERS: ATTEND Internal Medicine
DX: S99.921A Unspecified injury of right foot, initial encounter (principal); X58.XXXA Exposure to other specified factors, initial encounter; M79.622 Pain in left upper arm
CPT/HCPCS: 73090; 73610; 73630

== ENCOUNTER → 2018-02-20 | Outpatient (CLI) | payer MEDICAID ==
[2018-02-20 11:07] LABS: BASOPHILS # (AUTO) 0.1 X10^3/uL (0.0-0.1); BASOPHILS % (AUTO) 1.7 % (0.2-1.0); EOSINOPHILS # (AUTO) 0.2 x10^3/uL (0.0-0.2); EOSINOPHILS % (AUTO) 3.5 % (0.9-2.9); HEMATOCRIT 37.5 % (36.0-47.0); HEMOGLOBIN 13.1 g/dL (12.0-16.0); LYMPHOCYTES # (AUTO) 1.8 X10^3/uL (1.3-2.9); LYMPHOCYTES % (AUTO) 31.1 % (21.0-51.0); MEAN CORPUSCULAR HEMOGLOBIN 30.8 pg (27.0-34.0); MEAN CORPUSCULAR HGB CONC 34.9 g/dL (33.0-35.0); MEAN CORPUSCULAR VOLUME 88.2 fL (80.0-100.0); MEAN PLATELET VOLUME 9.2 fL (7.4-11.0); MONOCYTES # (AUTO) 0.4 x10^3/uL (0.3-0.8); NEUTROPHILS # (AUTO) 3.2 x10^3/uL (2.2-4.8); NEUTROPHILS % (AUTO) 56.7 % (42.0-75.0); PLATELET COUNT 172 X10^3/uL (150.0-450.0); RED BLOOD COUNT 4.26 X10^6/uL (3.5-5.4); RED CELL DISTRIBUTION WIDTH 14.3 % (11.6-16.5); WHITE BLOOD COUNT 5.7 X10^3/uL (3.6-10.0)
== END ==
LOC: LAB 10:43
PROVIDERS: ATTEND Nurse Practitioner Family
DX: N93.8 Other specified abnormal uterine and vaginal bleeding (principal)
CPT/HCPCS: 36415; 85025

== ENCOUNTER 2022-11-26 13:57 | Observation (INO) ==
[2022-11-26 15:57] VITALS: BMI 42.1
[2022-11-26] MEDS ORDERED: PROVENTIL NEB TX 0.083% 2.5MG/ 3ML NEB PRN (16:16)
--- NOTE | 2022-11-26 16:26 | EKG ---
Test Reason : chest pain Blood Pressure : */* mmHG Vent. Rate : 87 BPM Atrial Rate : 87 BPM P-R Int : 150 ms QRS Dur : 96 ms QT Int : 354 ms P-R-T Axes : 54 3 13 degrees QTc Int : 425 ms Normal sinus rhythm with sinus arrhythmia Minimal voltage criteria for LVH, may be normal variant ( R in aVL ) Possible Inferior infarct , age undetermined Possible Anterior infarct (cited on or before 25-NOV-2022) Abnormal ECG When compared with ECG of 25-NOV-2022 13:37, No significant change was found Confirmed by Edd Guzman ([id number]) on 11/27/2022 7:39:05 AM Referred By: Confirmed By: Edd Guzman
[2022-11-26 16:33] LABS: BASOPHILS % (AUTO) 0.4 % (0.2-1.0); EOSINOPHILS # (AUTO) 0.1 x10^3/uL (0.0-0.2); EOSINOPHILS % (AUTO) 1.7 % (0.9-2.9); HEMATOCRIT 40.9 % (36.0-47.0); HEMOGLOBIN 13.7 g/dL (12.0-16.0); LYMPHOCYTES # (AUTO) 2.4 X10^3/uL (1.3-2.9); LYMPHOCYTES % (AUTO) 31.1 % (21.0-51.0); MEAN CORPUSCULAR HGB CONC 33.5 g/dL (33.0-35.0); MEAN CORPUSCULAR VOLUME 89.5 fL (80.0-100.0); MONOCYTES # (AUTO) 0.5 x10^3/uL (0.3-0.8); NEUTROPHILS # (AUTO) 4.7 x10^3/uL (2.2-4.8); NEUTROPHILS % (AUTO) 59.8 % (42.0-75.0); RED BLOOD COUNT 4.58 X10^6/uL (3.5-5.4); RED CELL DISTRIBUTION WIDTH 13.8 % (11.6-16.5); WHITE BLOOD COUNT 7.9 X10^3/uL (3.6-10.0)
[2022-11-26 16:50] LABS: ALANINE AMINOTRANSFERASE 62 Units/L (12-78); ALBUMIN 3.8 g/dL (3.4-5.0); ALKALINE PHOSPHATASE 83 Units/L (46-116); ASPARTATE AMINO TRANSFERASE 25 Units/L (15-37); BLOOD UREA NITROGEN 13 mg/dL (7-18); CALCIUM 8.5 mg/dL (8.5-10.1); CARBON DIOXIDE 28.3 mmol/L (21-32); CHLORIDE 105 mmol/L (98-107); CREATINE KINASE 66 Units/L (26-192); SODIUM 140 mmol/L (136-145); eGFR NON BLACK RACES > 60 (>60)
[2022-11-26] MEDS ORDERED: XANAX PO PRN (17:50)
[2022-11-26] MEDS ORDERED: NS 1,000 ML IV 1,000 ML IV SCH (18:00)
--- NOTE | 2022-11-26 18:02 | DR.H&P ---
H&P - History & Physical for Day of: H&P Date: 11/26/22 - Chief Complaint Chief Complaint: CHEST PAIN, LEFT ARM PAIN - History of Present Illness History of Present Illness: PT IS 47 WF, DIRECT ADMIT FROM DR MOBLEY OFFICE WITH CO CHEST PAIN AND LEFT SHOULDER PAIN. PT WAS SEEN IN ER LAST NIGHT. PT REPORTS SHE HAS PMH OF CAD AND HYPERTENSION. PT IS UNDER THE CARE OF DR BONDS. PT ADMITTED FOR TREATMENT AND EVALUATION OF ACUTE ILLNESS. - Past Medical History Past Medical History: Hypertension, Anxiety - Past Surgical History Surgical History: Cholecystectomy, Hysterectomy, Ortho Surgery - Family History Family Medical History: Coronary Artery Disease, Hypertension - Social History Does patient currently use any type of tobacco product: No Have you used tobacco products in the last 12 months: No Type of Tobacco Use: None Does any household member use tobacco: No Alcohol Use: None Drug Use: Marijuana - Medications Home Medications: Penicillins Allergy (Severe, Verified 10/01/22 20:27) ANAPHALEXIS REACTION sulfamethoxazole [From Bactrim] Allergy (Mild, Verified 10/01/22 20:27) trimethoprim [From Bactrim] Allergy (Mild, Verified 10/01/22 20:27) codeine Allergy (Unknown, Unverified 10/01/22 20:27) haloperidol Allergy (Unknown, Unverified 10/01/22 20:27) prochlorperazine Allergy (Unknown, Unverified 10/01/22 20:27) promethazine Allergy (Unknown, Unverified 10/01/22 20:27) dexamethasone Allergy (Verified 10/01/22 20:27) CONTINUE taking the following medications amitriptyline 25 mg tablet 25 mg PO HS 11/26/22 [History] metoclopramide HCl 10 mg tablet 10 mg PO DAILY 11/26/22 [History] ondansetron 4 mg disintegrating tablet 4 mg PO BID PRN 11/26/22 [History] tramadol 50 mg tablet 50 mg PO TID PRN 11/26/22 [History] - Review of Systems Constitutional: Weakness, Malaise Eyes: No Symptoms Reported ENT: No Symptoms Reported Respiratory: Shortness of Breath Cardiovascular: Edema Gastrointestinal: Nausea Genitourinary: No Symptoms Reported Musculoskeletal: Back Pain, Neck Pain Skin: No Symptoms Reported Neurological: No Symptoms Reported - Physical Exam Vital Signs: Blood Pressure [Left Arm] 154/66 Blood Pressure [Right Arm] 167/97 Blood Pressure 161/84 Oriented: Normal Eyes: Normal Ear: Normal Nose: Normal Throat: Normal Respiratory: RLL Diminished, LLL Diminished Cardiovascular: Normal : Normal Auscultation: Bowel Sounds: Normal Palpation: Normal Tenderness: Normal Skin: Decreased Turgur Musculoskeletal: Back:Lumbar Psychiatric: Anxiety Mood Description: Anxious Affect: Anxious Speech Pattern: Clear, Appropriate - Assessment/Plan (1) Chest pain Status: Acute Plan: ADMIT, SERIAL CE AND EKG. VERIFY HOME MEDICATION. PPI THERAPY, CXR ON ADMISSION (2) Hypertension Status: Acute (3) Panic disorder Status: Acute (4) Hypertension Status: Chronic - Allergies Allergies/Adverse Reactions: Allergies Allergy/AdvReac Type Severity Reaction Status Date / Time Penicillins Allergy Severe ANAPHALEXIS Verified 10/01/22 20:27 REACTION sulfamethoxazole Allergy Mild Verified 10/01/22 20:27 [From Bactrim] trimethoprim [From Bactrim] Allergy Mild Verified 10/01/22 20:27 codeine Allergy Unknown Unverified 10/01/22 20:27 haloperidol Allergy Unknown Unverified 10/01/22 20:27 prochlorperazine Allergy Unknown Unverified 10/01/22 20:27 promethazine Allergy Unknown Unverified 10/01/22 20:27 dexamethasone Allergy Verified 10/01/22 20:27
[2022-11-26] MEDS: PROTONIX INJ 40 MG VIAL IVP SCH (18:55)
[2022-11-26] MEDS: PULMICORT NEB TX 0.5 MG NEB SCH (21:00)
[2022-11-26] MEDS ORDERED: ELAVIL PO SCH (21:00)
[2022-11-26] MEDS: CARDIZEM TAB 30 MG PLAIN PO SCH (21:19)
--- NOTE | 2022-11-26 23:48 | EKG ---
Test Reason : CHEST PAIN Blood Pressure : */* mmHG Vent. Rate : 59 BPM Atrial Rate : 59 BPM P-R Int : 160 ms QRS Dur : 100 ms QT Int : 410 ms P-R-T Axes : 22 -2 6 degrees QTc Int : 405 ms Sinus bradycardia Minimal voltage criteria for LVH, may be normal variant ( R in aVL ) Possible Anterolateral infarct (cited on or before 25-NOV-2022) Abnormal ECG When compared with ECG of 26-NOV-2022 16:19, (Unconfirmed) No significant change was found Confirmed by Edd Guzman ([id number]) on 11/27/2022 7:38:10 AM Referred By: Confirmed By: Edd Guzman
[2022-11-27] MEDS ORDERED: ULTRAM PO PRN (05:25)
[2022-11-27] MEDS: CARDIZEM TAB 30 MG PLAIN PO SCH (05:27)
[2022-11-27 05:50] LABS: BASOPHILS % (AUTO) 0.5 % (0.2-1.0); EOSINOPHILS # (AUTO) 0.1 x10^3/uL (0.0-0.2); EOSINOPHILS % (AUTO) 2.7 % (0.9-2.9); HEMOGLOBIN 12.2 g/dL (12.0-16.0); LYMPHOCYTES # (AUTO) 2.1 X10^3/uL (1.3-2.9); LYMPHOCYTES % (AUTO) 38.2 % (21.0-51.0); MEAN CORPUSCULAR HEMOGLOBIN 30.5 pg (27.0-34.0); MEAN CORPUSCULAR HGB CONC 33.8 g/dL (33.0-35.0); MEAN CORPUSCULAR VOLUME 90.1 fL (80.0-100.0); MEAN PLATELET VOLUME 10.4 fL (7.4-11.0); MONOCYTES # (AUTO) 0.3 x10^3/uL (0.3-0.8); MONOCYTES % (AUTO) 6.2 % (0.0-13.0); NEUTROPHILS # (AUTO) 2.9 x10^3/uL (2.2-4.8); NEUTROPHILS % (AUTO) 52.4 % (42.0-75.0); RED CELL DISTRIBUTION WIDTH 13.7 % (11.6-16.5); WHITE BLOOD COUNT 5.5 X10^3/uL (3.6-10.0)
[2022-11-27 06:05] LABS: ALANINE AMINOTRANSFERASE 52 Units/L (12-78); ALBUMIN 3.3 g/dL (3.4-5.0); ALKALINE PHOSPHATASE 70 Units/L (46-116); ASPARTATE AMINO TRANSFERASE 19 Units/L (15-37); BLOOD UREA NITROGEN 10 mg/dL (7-18); CHLORIDE 106 mmol/L (98-107); COR CA(FOR HYPOALB) 8.6 mg/dL (8.5-10.1); COR NA(FOR HYPERGLY) 141 mmol/L (136-145); SODIUM 140 mmol/L (136-145); TOTAL PROTEIN 6.1 g/dL (6.4-8.2); eGFR NON BLACK RACES > 60 (>60)
--- NOTE | 2022-11-27 06:12 | EKG ---
Test Reason : CHEST PAIN Blood Pressure : */* mmHG Vent. Rate : 60 BPM Atrial Rate : 60 BPM P-R Int : 166 ms QRS Dur : 102 ms QT Int : 406 ms P-R-T Axes : 25 -2 1 degrees QTc Int : 406 ms Normal sinus rhythm Moderate voltage criteria for LVH, may be normal variant ( R in aVL , [place] product ) Cannot rule out Anterior infarct (cited on or before 25-NOV-2022) Abnormal ECG When compared with ECG of 26-NOV-2022 23:43, (Unconfirmed) No significant change was found Confirmed by Edd Guzman ([id number]) on 11/27/2022 7:37:12 AM Referred By: Confirmed By: Edd Guzman
--- NOTE | 2022-11-27 06:38 | RAD ---
HISTORYCHEST PAINSTUDYCHEST, 1 [id number]/2023.[id number] or AP view of the chestFINDINGSThe cardiac and mediastinal contours are within normal limits. The lungs are clear without focal consolidation or segmental collapse. No pleural effusion or pneumothorax. Soft tissue attenuation limits evaluation.IMPRESSIONNo acute pulmonary process.Electronically signed by: Rashawn Nuñez (Nov 27, 2022 06:36:33)
[2022-11-27] MEDS: PULMICORT NEB TX 0.5 MG NEB SCH (08:37)
[2022-11-27] MEDS: PROTONIX INJ 40 MG VIAL IVP SCH (09:39)
[2022-11-27 14:53] VITALS: BP 144/77
== END 2022-11-27 15:00 | disposition home or self-care (01) ==
LOC: MED/SURG
PROVIDERS: ADMIT Internal Medicine; ATTEND Internal Medicine
DX: M25.512 Pain in left shoulder; R07.89 Other chest pain; R94.31 Abnormal electrocardiogram [ECG] [EKG]; I10 Essential (primary) hypertension; I25.10 Atherosclerotic heart disease of native coronary artery without angina pectoris; R06.02 Shortness of breath; F41.0 Panic disorder [episodic paroxysmal anxiety]